=== PATIENT | female | born 1985 | race Caucasian/White ===

== ENCOUNTER 2019-05-02 18:54 | Emergency (ER) | payer MEDICAID, SELFPAY ==
[2019-05-02 19:28] VITALS: BP 128/84; PULSE 96; RESP 16; TEMP 36.7; O2SAT 98; BMI 43.2
[2019-05-02 19:45] VITALS: BP 128/86; PULSE 70; RESP 20; O2SAT 100; BMI 40.3
== END 2019-05-02 23:13 | disposition left against medical advice (07) ==
LOC: ER 23:45
PROVIDERS: Emergency Provider Physician Assistant; Family Provider Nurse Practitioner Family; PCP Nurse Practitioner Family
DX: Z53.21 Procedure and treatment not carried out due to patient leaving prior to being seen by health care provider (principal)
CPT/HCPCS: 80053; 83690; 85025; 99281

== ENCOUNTER → 2019-10-24 15:41 | Outpatient (BNVA) | payer MEDICAID, SELFPAY | PROVIDERS: Family Provider Nurse Practitioner Family; PCP Nurse Practitioner Family; Visit Provider Nurse Practitioner Family | DX: R10.13 Epigastric pain (principal); K21.9 Gastro-esophageal reflux disease without esophagitis; R11.0 Nausea | CPT/HCPCS: 81000 ==

== ENCOUNTER → 2019-10-25 09:37 | Outpatient (BNVA) | payer MEDICAID, SELFPAY | PROVIDERS: Family Provider Nurse Practitioner Family; PCP Nurse Practitioner Family; Visit Provider Nurse Practitioner Family | DX: R10.13 Epigastric pain (principal); K21.9 Gastro-esophageal reflux disease without esophagitis; R11.2 Nausea with vomiting, unspecified | CPT/HCPCS: 80053; 85025; 87338 ==

== ENCOUNTER 2019-11-10 07:24 | Outpatient (CLI) | payer MEDICAID, SELFPAY ==
--- NOTE | 2019-11-10 08:00 | US_ITS ---
WS: [id number] ULTRASOUND ABDOMEN LIMITED CLINICAL INFORMATION: epigastric pain, nausea, vomiting COMPARISON: None. FINDINGS: Liver Size: Normal. Craniocaudal length: 16.2 cm. Echogenicity: Normal. Surface nodularity: None. Mass (size and location): None. Bile ducts Intrahepatic ducts: Normal. Common bile duct diameter: 0.6 cm. Gallbladder Cholelithiasis Gallstones: Present Gallbladder sludge: None. Gallbladder wall thickening: None. Pericholecystic fluid: None. Sonographic Patino sign: Absent. Pancreas Normal as visualized. Right kidney: Normal. Hydronephrosis: None. Size: 11.2 cm x 5.3 cm x 4.0 cm. Abdominal aorta and IVC Visualized portions are normal. Ascites: None. US/US gall bladder [id number] IMPRESSION: 1. Cholelithiasis. No pericholecystic fluid or gallbladder wall thickening. 2. Normal common bile duct. 3. Remainder normal
== END 2019-11-10 07:25 | disposition home or self-care (01) ==
PROVIDERS: Family Provider Nurse Practitioner Family; PCP Nurse Practitioner; Visit Provider Nurse Practitioner Family
DX: R10.13 Epigastric pain (principal); R11.2 Nausea with vomiting, unspecified; K80.20 Calculus of gallbladder without cholecystitis without obstruction
CPT/HCPCS: 76705

== ENCOUNTER 2019-11-22 09:28 | Outpatient (CLI) | payer MEDICAID, SELFPAY ==
--- NOTE | 2019-11-22 10:00 | NM_ITS ---
WS: [id number] NUCLEAR MEDICINE HIDA SCAN CLINICAL INFORMATION: upper abdominal pain, stones TECHNIQUE: Following intravenous administration of 6.5 mCi of technetium 99m mebrofenin, images of th e abdomen were obtained over the course of 60 minutes. Next, gallbladder ejection fraction was determ ined by obtaining preprandial and one-hour postprandial images of the gallbladder following oral cat stion of Ensure. COMPARISON: Ultrasound November 10, 2019 FINDINGS: Normal hepatic uptake at 5 minutes. Gallbladder is visualized by 15 minutes. No evidence of acute cho lecystitis. Normal common bile duct. Normal small bowel activity. No evidence of acute cholecystitis. Gallbladder ejection fraction 71% within normal limits. No evidence of chronic cholecystitis. NM/NM hepatobiliary w phar* [id number] IMPRESSION: 1. No evidence of acute or chronic cholecystitis. 2. Gallbladder ejection fraction 71% within normal limits.
== END 2019-11-22 09:29 | disposition home or self-care (01) ==
LOC: NM 09:29
PROVIDERS: PCP Nurse Practitioner; Visit Provider Nurse Practitioner Family
DX: R10.10 Upper abdominal pain, unspecified (principal)
CPT/HCPCS: 78227; A9537

== ENCOUNTER → 2019-12-26 08:29 | Outpatient (BNVA) | payer MEDICAID, SELFPAY | PROVIDERS: PCP Nurse Practitioner; Visit Provider Internal Medicine | DX: K21.9 Gastro-esophageal reflux disease without esophagitis (principal); R10.13 Epigastric pain | CPT/HCPCS: 87635 ==

== ENCOUNTER 2019-12-28 07:33 | Day surgery (SDC) | payer MEDICAID, SELFPAY ==
[2019-12-26 12:58] VITALS: BMI 40.7
[2019-12-28 08:07] VITALS: BP 119/70; PULSE 81; RESP 16; TEMP 36.2; O2SAT 97
[2019-12-28] MEDS: sodium chloride 0.9% 1,000 ML 30 ML IV (08:12)
--- NOTE | 2019-12-28 08:58 | ANES.PREANE2 ---
Pre-Anesthetic Assessment Pre-Anesthetic Assessment: Height/Weight: Height 1.65 m Weight 111.13 kg Temp Pulse Resp BP Pulse Ox 97.2 F L 81 16 119/70 97 12/28/19 08:07 12/28/19 08:07 12/28/19 08:07 12/28/19 08:07 12/28/19 08:07 Preop Diagnosis: Abdominal pain and Family History of colon cancer Proposed Procedure: Operation Date: 12/28/19 09:15 Proposed Procedures p EGD/colon 99839 [id number] K21.9 Z80.0(Not Applicable) - Xavier Colunga MD s Colonoscopy(Not Applicable) - Xavier Colunga MD Was Beta Aaron taken within 24 hours: N/A Last intake: Intake Last Liquid Date 12/27/19 Last Liquid Time 21:00 Last Solid Date 12/26/19 Last Solid Time 18:00 Social: Social History: Tobacco (1 pk day) and No alcohol Comment: marijuana daily Exam: Pre-Anes Outpt Exam: alert, oriented x 3, clear to auscultation bilaterally and regular rate & rhythm Airway: Submandibular: WNL Cervical ROM: WNL Dentition: Full (very poor dentition) History/ROS: No significant history except as noted and No significant complaints Pulmonary: Pulmonary: None reported CV/HEM: CV/HEM: None reported : : None reported Hepatic: Hepatic: None reported GI: GI: GERD Metabolic: Metabolic: Morbid obesity Musc/skel: Musc/skel: None reported Neuropsych: Neuropsych: None reported Anesthetic Plan: ASA status: 2 Anesthesia: MAC Meds/Allergies Current Medications: Current Medications Generic Name Dose Route Start Last Admin Trade Name Freq PRN Reason Stop Dose Admin Sodium Chloride 1,000 mls @ 30 ml s/hr 12/28/19 07:45 12/28/19 08:12 Sodium Chloride 0.9% IV 12/29/19 07:44 30 mls/hr .Q24H CAROL Administration PFSH Anesthesia PFSH: Medical History Cholelithiasis Chronic nausea Chronic vomiting Epigastric pain Family hx of colon cancer requiring screening colonoscopy GERD (gastroesophageal reflux disease) Surgical History History of 2 sections History of ankle surgery Right tibia screws History of bilateral tubal ligation Family History Other Cancer Diabetes Hypertension Stroke Denies family history of Dementia Chronic kidney disease (CKD) Social History Smoking and tobacco status: current every day smoker Second hand smoke exposure: Yes Smoking risk assessment/counseling performed?: Yes Alcohol intake: former Desire information about alcohol rehabilitation?: No Counseling given: No Desire information about substance/drug rehabilitation?: No Counseling given: No Caregiver/support person: No Lives independently: Yes Household members: spouse Housing: House Marital status: Number of children: 2 service: No Current occupational status: unemployed History of recent travel: No Current gender identity: Female Data Anesthesia Cardiac Studies: No Data to Display
--- NOTE | 2019-12-28 09:03 | W.PM.OPSUD ---
Surgery/Procedure H&P Update DATE OF PROCEDURE: December 28, 2019 DATE H&P PERFORMED: 12/07/19 H&P UPDATE INFORMATION: I have reviewed H&P completed within last 30 days, I have examined patient prior to procedure and No changes to prior documentation PREOP DIAGNOSIS: Abdominal pain and Family History of colon cancer PRIMARY INDICATION FOR PROCEDURE: The same PLANNED PROCEDURE: Operation Date: 12/28/19 09:15 Proposed Procedures p EGD/colon 08079 [id number] K21.9 Z80.0(Not Applicable) - Xavier Colunga MD s Colonoscopy(Not Applicable) - Xavier Colunga MD
[2019-12-28 09:23] VITALS: BP 98/68; PULSE 83; RESP 16; TEMP 36.8; O2SAT 93
--- NOTE | 2019-12-28 09:31 | ANE.PACU2 ---
Inpatient post-anesthesia follow up: Airway intact: Yes Vital signs: Temperature 97.2 F Pulse Rate 81 Respiratory Rate 16 Blood Pressure 119/70 Pulse Oximetry 97 Oxygen Delivery Me thod Room Air Oxygen Flow Rate Fraction of Inspir ed Oxygen Hydration adequate: Yes Nausea and vomiting: No Mental status: Baseline
[2019-12-28 09:42] VITALS: BP 112/88; PULSE 82; RESP 16; O2SAT 97
== END 2019-12-28 09:53 | disposition home or self-care (01) ==
PROVIDERS: Visit Provider Surgery
PROC: 0DJ08ZZ Inspection of Upper Intestinal Tract, Via Natural or Artificial Opening Endoscopic (ICD-10-PCS; CPT 43235; principal; 2019-12-28 09:15)
PROC: 0DJD8ZZ Inspection of Lower Intestinal Tract, Via Natural or Artificial Opening Endoscopic (ICD-10-PCS; CPT 45378; 2019-12-28 09:15)
DX: K29.80 Duodenitis without bleeding (principal); K29.70 Gastritis, unspecified, without bleeding; K21.9 Gastro-esophageal reflux disease without esophagitis; F17.210 Nicotine dependence, cigarettes, uncomplicated; E66.01 Morbid (severe) obesity due to excess calories; Z80.0 Family history of malignant neoplasm of digestive organs
CPT/HCPCS: 12345; 43235; 45378; J2704; J3010; J7030

== ENCOUNTER → 2020-01-20 09:57 | Outpatient (BNVA) | payer MEDICAID, SELFPAY | PROVIDERS: Visit Provider Internal Medicine | DX: Z20.828 Contact with and (suspected) exposure to other viral communicable diseases (principal) | CPT/HCPCS: 87635 ==

== ENCOUNTER 2020-01-25 08:41 | Day surgery (SDC) | payer MEDICAID, SELFPAY ==
[2020-01-23 12:02] VITALS: BMI 36.4
[2020-01-25] VITALS (13 sets, daily range): BP systolic 101–179; BP diastolic 62–127; PULSE 61–90; RESP 18–27; TEMP 36.2–36.5; O2SAT 94–98
[2020-01-25 09:04] LABS: OR HCG Qualitative Urine Negative (Negative)
[2020-01-25] MEDS: sodium chloride 0.9% 1,000 ML 30 ML IV (09:24)
[2020-01-25] MEDS: heparin 5,000 unit/mL INJ 1 mL 2000 UNIT SUBCUT (09:25)
--- NOTE | 2020-01-25 09:34 | ANES.PREANE2 ---
Pre-Anesthetic Assessment Pre-Anesthetic Assessment: Height/Weight: Height 1.65 m Weight 99.337 kg Temp Pulse Resp BP Pulse Ox 97.6 F 73 18 101/69 97 01/25/20 09:07 01/25/20 09:07 01/25/20 09:07 01/25/20 09:07 01/25/20 09:07 Preop Diagnosis: Symptomatic cholelithiasis Proposed Procedure: Operation Date: 01/25/20 11:00 Proposed Procedures p Laparoscopic Cholecystectomy 88501 K80.20(Not Applicable) - Xavier Colunga MD Familial anesthetic complications: None Was Beta Aaron taken within 24 hours: N/A Last intake: Intake Last Liquid Date 01/24/20 Last Liquid Time 21:00 Last Solid Date 01/24/20 Last Solid Time 16:00 Social: Social History: Tobacco and No alcohol Comment: 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 Exam: Pre-Anes Outpt Exam: alert, oriented x 3, clear to auscultation bilaterally and regular rate & rhythm Airway: Cervical ROM: WNL MP: 4 Dentition: Chipped and Other (missing) GI: GI: GERD Metabolic: Metabolic: Morbid obesity Anesthetic Plan: ASA status: 1 Anesthesia: General Risk of > 500 ml blood loss (7ml/kg in children): No Meds/Allergies Current Medications: Current Medications Generic Name Dose Route Start Last Admin Trade Name Freq PRN Reason Stop Dose Admin Sodium Chloride 1,000 mls @ 30 ml s/hr 01/25/20 09:15 01/25/20 09:24 Sodium Chloride 0.9% IV 01/26/20 09:14 30 mls/hr .Q24H CAROL Administration PFSH Anesthesia PFSH: Medical History Cholelithiasis Chronic nausea Chronic vomiting Epigastric pain Family hx of colon cancer requiring screening colonoscopy GERD (gastroesophageal reflux disease) Surgical History History of 2 sections History of ankle surgery Right tibia screws History of bilateral tubal ligation Family History Other Cancer Diabetes Hypertension Stroke Denies family history of Dementia Chronic kidney disease (CKD) Social History Smoking and tobacco status: current every day smoker Second hand smoke exposure: Yes Smoking risk assessment/counseling performed?: Yes Alcohol intake: former Desire information about alcohol rehabilitation?: No Counseling given: No Desire information about substance/drug rehabilitation?: No Counseling given: No Caregiver/support person: No Lives independently: Yes Household members: spouse Housing: House Marital status: Number of children: 2 service: No Current occupational status: unemployed History of recent travel: No Current gender identity: Female Female Reproductive History: Date of last menstrual period: 01/22/20 Data Anesthesia Other Labs: Laboratory Results - last 48 hr 01/25/20 09:04 Urine HCG, Qual Negative Cardiac Studies: No Data to Display
--- NOTE | 2020-01-25 10:09 | W.PM.OPSUD ---
Surgery/Procedure H&P Update DATE OF PROCEDURE: January 25, 2020 DATE H&P PERFORMED: 01/11/20 H&P UPDATE INFORMATION: I have reviewed H&P completed within last 30 days and No changes to prior documentation PREOP DIAGNOSIS: Symptomatic cholelithiasis PRIMARY INDICATION FOR PROCEDURE: The same PLANNED PROCEDURE: Operation Date: 01/25/20 11:00 Proposed Procedures p Laparoscopic Cholecystectomy 20563 K80.20(Not Applicable) - Xavier Colunga MD
[2020-01-25] MEDS: lidocaine 2% INJ 20 mL INJECTION (11:50)
--- NOTE | 2020-01-25 12:38 | PM.OP ---
Operative Report Date of procedure: January 25, 2020 Pre-op Diagnosis: Symptomatic cholelithiasis Post-op diagnosis: other (Chronic calculus cholecystitis) Procedure Done: Laparoscopic cholecystectomy Specimens removed/disposition: Gallbladder and contents Gallbladder lymph node Surgeon: Xavier Colunga New Car Make Ready Mechanic: Surgical techkassi Sahu Circulating nurses Jossy and Vika Anesthesia: General (director of special education Fly) Estimated blood loss (mL): 25 Condition: stable Disposition: same day Brief History: This is a pleasant 34 years old female patient presented to my office with history of abdominal pain and was found to have symptomatic cholelithiasis after further work-up including EGD and colonoscopy. Plan of care; After thorough history physical examination and reviewing the chart ,I counseled the patient for laparoscopic cholecystectomy possible open, indications risks including but not limited injury to the common bile duct and other viscera.benefits and alternatives all discussed with the patient, and she did agree to proceed. All questions have been answered and all concerns have been addressed to patient's satisfaction. Rationale was carefully and clearly discussed with the patient.Appropriate informed consent have been reviewed and signed. Procedure: Patient was identified in the holding area and taken back to the operative suite, placed in supine position intubated by anesthesia . Time-out was done verifying the patient's name/date of /planned procedure and destination after the procedure, all were in agreement.SCDs confirmed to be functioning, preoperative antibiotics administered per protocol, and beta freddie protocol was confirmed. Patient was appropriately secured to the table, footboard was applied to the OR table, before prep and drape anesthesia was asked to tilt the table back and forth to make sure that the patient is appropriately secured and she was. Prep and drape of the abdomen was done under the usual sterile technique, followed by that supraumbilical skin incision,skin incision was done by a 15 blade knife, and stay sutures were applied to the fascia and Rodarte trocar technique was used to enter the abdominal without injuring any abdominal viscera, started by low flow gas insufflation followed by a high flow, started with a 10 mm laparoscope and under direct vision there was no evidence of any injuries, the scope then switched to a 30? ,10 millimeter scope and under direct visualization 5 millimeter trocar was inserted in the epigastric region followed by two 5 mm trocars were inserted in the right upper quadrant that was done after injection of local lidocaine 2% at all incision sites. Gallbladder showed chronic calculus cholecystitis with fatty liver component Patient was then positioned in the head up and tilted to the left Ratcheted forceps were introduced into the lateral most 5mm port and was applied unto the fundus of the gallbladder cephalad and using Bullet forceps the infundibulum of the gallbladder was retracted laterally. Using [place] forceps then L-hook cautery to dissect the peritoneum overlying the Calot's triangle whihc was then opened medially and laterally until the cystic duct and the cystic artery were skeletonized. Dissection was carried along the body of the gallbladder and after ensuring critical view of safety was identfied. Cystic duct and cystic artery where seen connected to the gallbladder. Clips were applied on the cystic duct towards the common bile duct 1 towards the gallbladder then divided is in sharp scissors, 2 clips were then applied onto the cystic artery and 1 towards the gallbladder and divided by sharp scissors. Additional traversing vessel was clipped and divided Dissection was then carried along of the gallbladder from the gallbladder fossa using cautery as well as sharp dissection with heat energy. The gallbladder then was dissected out from the gallbladder fossa totally , cholecystectomy was then achieved and was placed in an Endo Catch bag and then retrieved from the Rodarte trocar site under direct visualization using a 5 mm 30? scope through the epigastric trocar, specimen was then passed to the circulating nurse to go for permanent pathology,irrigation and hemostasis was done to the gallbladder fossa after hemostasis was secured, final survey laparoscopy was done that showed no injuries.Suction irrigation was obtained. The supraumbilical fascial defect was then closed using interrupted Vicryl sutures using a fascial closure device ;Giacomo Lauren under direct visualization Gas was allowed to deflate,Trocars were then taken out under direct vision there was no evidence of bleeding Specimen was passed to the circulating nurse for permanent pathology. No drains were placed and the supraumbilical incision as well as all trocar sites were closed by by 4-0 Monocryl to approximate the skin edges of the supraumbilical incision, dressing was applied in the form of Dermabond and the patient patient got extubated and was taken to recovery area in a stable condition. Count of sponges, needles and instruments were completed at the end of the procedure I was present for the whole entire procedure.
--- NOTE | 2020-01-25 13:01 | SUR.PHASEI ---
1259 PATIENT TO PACU FROM OR. RR EVEN AND UNLABORED. SPO2 97% ON SIMPLE MASK AT 8L. 4 INCISIONS TO ABDOMEN, CLOSED WITH EXOFIN, CDI.
[2020-01-25] MEDS: ondansetron 2 mg/ML SDV 2 mL 4 MG IVP ×2 (13:08→13:20)
[2020-01-25] MEDS: fentaNYL 50 mcg/mL INJ 2mL IVP (13:18)
--- NOTE | 2020-01-25 13:47 | SUR.PHASEI ---
1342 PATIENT TO OPS. NAUSEA IMPROVED. 4 INCISIONS TO ABDOMEN, CDI.
[2020-01-25] MEDS: HYDROcodone-acetaminophen 5-325 mg Tablet 1 TAB PO (14:13)
--- NOTE | 2020-01-25 14:30 | ANE.PACU2 ---
Inpatient post-anesthesia follow up: Airway intact: Yes Vital signs: Temperature 97.1 F Pulse Rate 72 Respiratory Rate 18 Blood Pressure 137/62 Pulse Oximetry 98 Oxygen Delivery Me thod Room Air Oxygen Flow Rate 8 Fraction of Inspir ed Oxygen Hydration adequate: Yes Nausea and vomiting: Yes (used multimodal treatments) Pain level: 5 Mental status: Baseline
== END 2020-01-25 14:32 | disposition home or self-care (01) ==
PROVIDERS: Anesthesiology; Visit Provider Surgery
PROC: 0FT44ZZ Resection of Gallbladder, Percutaneous Endoscopic Approach (ICD-10-PCS; CPT 47562; principal; 2020-01-25 10:30)
DX: K80.70 Calculus of gallbladder and bile duct without cholecystitis without obstruction (principal); K21.9 Gastro-esophageal reflux disease without esophagitis; E66.01 Morbid (severe) obesity due to excess calories; Z68.36 Body mass index [BMI] 36.0-36.9, adult; Z80.0 Family history of malignant neoplasm of digestive organs; F17.210 Nicotine dependence, cigarettes, uncomplicated
CPT/HCPCS: 47562; 12345; 84703; 88304; 88305; J0131; J0690; J1100; J1644; J1885; J2405; J2704; J2710; J2765; J3010; J3490; J7030

== ENCOUNTER 2020-01-26 07:47 | Emergency (ER) | payer MEDICAID, SELFPAY ==
[2020-01-26 07:51] VITALS: BP 160/90; PULSE 95; RESP 18; TEMP 36.5; O2SAT 100; BMI 36.6
--- NOTE | 2020-01-26 08:12 | ED_ITS ---
HPI - Nausea/Vomiting/Diarrhea General: Chief complaint: Nausea/Vomiting/Diarrhea Stated complaint: vomiting post op surgery Time Seen by Provider: 01/26/20 07:51 History of Present Illness: HPI Narrative: This patient is a 34-year-old female who presents today with vomiting. She had her gallbladder removed yesterday and started having vomiting on the way home from the hospital. She has been unable to keep anything down including her pain medication. She has not taken anything for nausea and vomiting. She is thrown up multiple times throughout the night and continues to have severe nausea and emesis during my exam. She has some pain in the left upper quadrant but in general her main complaint is nausea and vomiting. MD elicited complaint: nausea, vomiting and abdominal pain Pertinent past history: abdominal surgery Onset (ago): hour(s) (12) Description of vomiting: food contents and watery Associated nausea: Yes Associated abdominal pain: Yes Location of pain: LUQ Pain consistency: constant Severity: moderate Quality: sharp Exacerbating factors: movement Relieving factors: movement Associated symtoms: Reports nausea; Denies change in vision, chest pain or headache(s) Review of Systems General: Reports: 10 or more systems reviewed and unremarkable except in HPI and below Const: Denies: fever(s) Eyes: Denies: change in vision ENMT: Denies: odynophagia Card: Denies: chest pain or swelling of feet/ankles Resp: Denies: dyspnea, productive cough or non-productive cough GI: Reports: abdominal pain, nausea and vomiting : Denies: flank pain or difficulty voiding Musc: Denies: neck pain or back pain Skin/Breast: Denies: rash Neuro: Denies: headache(s), numbness in extremities or weakness in extremities Spencer/Lymph: Denies: easy bruising or easy bleeding PFSH ED PFSH: Medical History Cholelithiasis Chronic nausea Chronic vomiting Epigastric pain Family hx of colon cancer requiring screening colonoscopy GERD (gastroesophageal reflux disease) Surgical History History of 2 sections History of ankle surgery Right tibia screws History of bilateral tubal ligation Family History Other Cancer Diabetes Hypertension Stroke Denies family history of Dementia Chronic kidney disease (CKD) Social History Smoking and tobacco status: current every day smoker Second hand smoke exposure: Yes Smoking risk assessment/counseling performed?: Yes Alcohol intake: former Desire information about alcohol rehabilitation?: No Counseling given: No Substance/Drug Use: current Substance/Drug use frequency: daily Substance/Drug use type: Marijuana Caregiver/support person: No Lives independently: Yes Household members: spouse Housing: House Marital status: Number of children: 2 service: No Current occupational status: unemployed History of recent travel: No Current gender identity: Female Female Reproductive History: Date of last menstrual period: 01/22/20 Physical Exam Const: COMMON NORMALS: patient oriented x3, no limitations and alert GENERAL APPEARANCE: cooperative HENMT: HEAD & SCALP: normal to inspection FACE & SINUS: normal facial exam Eye: GENERAL EYE: appearance normal, both eyes and all related structures Neck/C-Spine: COMMON NORMALS: supple, no meningeal signs and no JVD Chest: COMMONS NORMALS: normal inspection of the chest Resp: COMMON NORMALS: normal respiratory effort, No use of accessory muscles and clear to auscultation bilaterally AUSCULTATION: clear to auscultation bilaterally Cardio: COMMON NORMALS: no JVD, regular rate, regular rhythm and No murmurs present (Cardio) RATE: regular rate RHYTHM: regular rhythm GI: PALPATION: Yes Tenderness to palpation present (GI) (Diffuse) Back/Pelvis: COMMON NORMALS: thoracic and lumbar spine normal to inspection Extremity: COMMON NORMALS: normal to inspection Neuro: COMMON NORMALS: patient oriented x3, moves all extremities, no focal motor deficits and no sensory deficits noted SENSORIUM/ORIENTATION: Yes alert MENINGEAL SIGNS: Yes no meningeal signs Psych: COMMON NORMALS: mental status grossly normal, cooperative and normal affect Skin: COMMON NORMALS: no rashes or lesions noted and turgor normal GENERAL SKIN EXAM: no rashes or lesions noted and turgor normal Course ED course: Patient in severe distress with vomiting on initial arrival. After some medications, fluids, rest she reported feeling completely better. She was able to tolerate sips of fluid and then some pudding. She feels comfortable to go home. I am sending her home with some ODT ondansetron. She will continue her other postop instructions. Vital Signs: Vital signs: Vital Signs Temperature 97.7 F 01/26/20 07:51 Pulse Rate 72 01/26/20 13:31 Respiratory Rate 18 01/26/20 13:31 Blood Pressure 113/72 01/26/20 13:31 Pulse Oximetry 97 01/26/20 13:31 Discharge Plan Discharge Patient Disposition: Home Clinical Impression: Vomiting Qualifiers: Vomiting type: unspecified Vomiting Intractability: non-intractable Nausea presence: with nausea Qualified Code(s): R11.2 - Nausea with vomiting, unspecified Condition: Stable Prescriptions: New ondansetron 4 mg tablet,disintegrating 4 mg PO Q6H PRN (Reason: nausea and vomiting) Qty: 10 RF: 0 No Action diphenhydramine-acetaminophen [Tylenol PM Extra Strength] 25-500 mg Tablet 1 tab PO Q4H PRN (Reason: Pain) RF: 0 hydrocodone-acetaminophen [[place]] 5-325 mg tablet 1 tab PO Q6H PRN (Reason: pain) Qty: 28 RF: 0 pantoprazole [Protonix] 40 mg tablet,delayed release (DR/EC) 40 mg PO DAILY 30 Days Qty: 30 RF: 2 Discharge Orders: Discharge Order (Routine); Ordered 01/26/20 Ordered By: Oneida [place] Discharge Diet: As Directed Discharge Activity: Limit activity as instructed Patient Instructions: Acute Nausea and Vomiting (ED) Activity Restrictions/Additional Instructions: Continue instructions given by your surgeon including follow-up. Use your pain medicine as needed. You may also use the ondansetron for nausea. Discharge Date/Time: 01/26/20 13:35 Coding Level of Care Code ED Agent Based Modeler for [employer] Fwd Exam Comprehensive
[2020-01-26 08:35] VITALS: RESP 17; O2SAT 96
[2020-01-26] MEDS: ondansetron 2 mg/ML SDV 2 mL 4 MG IVP (08:35)
[2020-01-26] MEDS: morphine 4 mg/mL SDV 1 mL IVP (08:35)
[2020-01-26] MEDS: sodium chloride 0.9% 1,000 ML 999 ML IV (08:37)
[2020-01-26] MEDS: famotidine 20 mg/2 mL INJ 40 MG IVP (10:10)
[2020-01-26 10:11] VITALS: RESP 18; O2SAT 98
[2020-01-26] MEDS: ketorolac 30 mg/mL INJ 15 MG IVP (10:11)
[2020-01-26] MEDS: HYDROmorphone 1 mg/mL INJ 1 mL 0.5 MG IVP (10:11)
[2020-01-26 13:31] VITALS: BP 113/72; PULSE 72; RESP 18; O2SAT 97
== END 2020-01-26 13:35 | disposition home or self-care (01) ==
PROVIDERS: Emergency Provider Emergency Medicine
DX: R11.2 Nausea with vomiting, unspecified (principal); F17.210 Nicotine dependence, cigarettes, uncomplicated
CPT/HCPCS: 12345; 96361; 96374; 96375; 99282; 99283; J1170; J1885; J2270; J2405; J3490; J7030

== ENCOUNTER 2020-01-27 10:25 | Observation (INO) | payer MEDICAID, SELFPAY ==
[2020-01-27] VITALS (12 sets, daily range): BP systolic 123–165; BP diastolic 76–101; PULSE 71–81; RESP 18–25; TEMP 36.9–38.2; O2SAT 97–100; BMI 36.6
--- NOTE | 2020-01-27 11:27 | PC.NURSE ---
This RN reviewed chart and agree with matteo Fenton.
[2020-01-27 11:42] LABS: Alanine Aminotransferase 26 U/L (0-33); Albumin Level 4.6 g/dL (3.5-5.2); Alkaline Phosphatase 79 IU/L (35-105); Anion Gap 17.5 (5-19); Aspartate Amino Transferase 19 U/L (0-32); Blood Urea Nitrogen 6 mg/dL (6-20); Calcium 9.7 mg/dL (8.5-10.5); Carbon Dioxide 20 mmol/L (22-29); Chloride 103 mmol/L (98-107); Globulin 2.9 g/dL (1.3-4.6); Glomerular Filtration Rate 115.9 mL/min (90-130); Glucose 117 mg/dL (65-115); Lipase 15 U/L (13-60); Osmolality Calculated 283 mOsm/kg (285-295); Potassium 3.5 mmol/L (3.5-5.1); Sodium 137 mmol/L (136-145); Total Bilirubin 0.3 mg/dL (0.15-1.2); Total Protein 7.5 g/dL (6.6-8.7)
[2020-01-27] MEDS: sodium chloride 0.9% 1,000 ML 999 ML IV (11:44)
[2020-01-27 11:45] LABS: Basophils % 0.1 %; Eosinophils % 0.4 %; Hematocrit 39.1 % (37.0-47.0); Hemoglobin 13.7 g/dL (11.5-15.3); Lymphocytes # 0.6 10^3/uL (0.8-4.8); Lymphocytes % 5.7 %; Mean Corpuscular Hemoglobin 31.9 pg (28.0-34.0); Mean Corpuscular Volume 90.9 fL (81-99); Mean Platelet Volume 11.7 fL (7.4-10.4); Monocytes # 0.3 10^3/uL (0.2-0.9); Neutrophils % 90.6 %; Nucleated Red Blood Cells % 0 %; Platelet Count 174 10^3/cmm (130-400); Red Cell Distribution Width 12.3 % (12.1-15.1)
[2020-01-27] MEDS: ondansetron 2 mg/ML SDV 2 mL 4 MG IVP ×3 (11:46→18:28)
[2020-01-27] MEDS: orphenadrine 30 mg/mL Inj 2 mL 60 MG IVP (12:20)
--- NOTE | 2020-01-27 12:20 | P.PN_ITS ---
Subjective Subjective: Interval history: I am nauseated Interval history This is a pleasant 34 years old female patient well-known to me undergone uneventful laparoscopic cholecystectomy last Thursday and was discharged home. Patient apparently has been having intermittent nausea and vomiting. Him yesterday to the emergency department and was treated conservatively and discharged home. The day she continues to have worsening symptoms she was evaluated in the emergency department by nurse practitioner Vika and blood work was ordered that showed insignificance, including liver function tests. Patient was recently scoped by me and showed duodenitis and she has been on Protonix. Clinically she was not able to take it. Patient continues to have stable vital signs She complains mostly of pain around the umbilical region likely at the site of trocar incision closure. Patient was seen and evaluated in the emergency department room #2 Vitals/I&O/Wt Last Vital Signs Temp 98.8 F 01/27/20 11:00 Pulse 71 01/27/20 11:46 Resp 25 H 01/27/20 11:46 BP 165/86 01/27/20 11:46 Pulse Ox 100 01/27/20 11:46 Weight last 48 hrs Weight 220 lb Physical Exam Narrative: EXAM NARRATIVE: Patient is conscious alert oriented X3 BMI 36.6 Head and neck examination PERRLA no masses no cervical lymphadenopathy No jaundice Abdomen nontender except at the periumbilical and towards the left side more than the right side. Nondistended soft no organomegaly guarding or rigidity/no signs of peritonitis Incisions are clean dry and intact Data : 01/28/20 04:34 01/28/20 04:34 A&P Assessment and plan (1) Vomiting: Appropriate IV fluid hydration Muscle relaxants in the form of 10 mg 3 times daily Flexeril as needed for 30 days and refill x1 Carafate 1 g 3 times daily for 30 days refill x2 Scopolamine patch 1.5 mg nausea and vomiting Protonix IV 40 mg stat Norflex one-time dose Ice packs 3-4 times a day If patient continues to have symptoms we will plan to perform a CT scan of the abdomen and pelvis. Oral contrast.: 1. Small to moderate amount fluid in the dependent pelvis which has the density of blood. 2. Hepatic steatosis. 3. Splenomegaly. 4. Mild mucosal thickening of the distal esophagus. Consider esophagitis. 5. Nonobstructing right nephrolithiasis. We will plan to admit the patient for observation status and electrolyte replacement Assurance and education All questions have been answered and all concerns have been addressed to patient's satisfaction. Status: Acute Qualifiers: Nausea presence: with nausea Vomiting Intractability: non-intractable Vomiting type: unspecified Qualified Code(s): R11.2 - Nausea with vomiting, unspecified Attestations Medical Necessity Statement*: Patient was seen in ER setting Time Spent in Patient Care: (>than 50% of time spent in counselling and/or direct pt care on unit) . Coding Level of Care Code Acute Prototype Fabricator for g Fwd Diagnoses Vomiting R11.2 Nausea presence: with nausea Vomiting Intractability: non-intractable Vomiting type: unspecified
[2020-01-27] MEDS: famotidine 20 mg/2 mL INJ 40 MG IVP (12:23)
[2020-01-27] MEDS: scopolamine 1.5 Patch 1 PATCH TRANSDERMA ×2 (12:27→18:26)
[2020-01-27 13:27] LABS: Urine Color Yellow (Yellow)
[2020-01-27 13:28] LABS: Add Urine Culture? No; Add Urine Microscopic? YES; Bacteria Urine 2+ /hpf; Bilirubin Urine Neg (Negative); Blood Urine 3+ (Negative); Glucose Urine UA Norm (Normal); Ketones Urine 3+ (Negative); Leukocyte Esterase Urine Negative (Negative); Mucus Urine 1+ /hpf; Nitrate Urine Negative (Negative); Protein Urine Neg (Negative); Specific Gravity, Urine 1.025 (1.005-1.030); Squamous Epithelial Cell Urine 15-25 /hpf (0-5); Urine Appearance SL Hazy (CLEAR); Urobilinogen Urine Norm (Negative)
--- NOTE | 2020-01-27 13:28 | CTR_ITS ---
PROCEDURE INFORMATION: Exam: CT Abdomen And Pelvis With Contrast Exam date and time: 01/27/2020 1:33 PM Age: 34 years old Clinical indication: Abdominal pain; Prior surgery; Surgery date: Post-operative (0-2 days); Surgery type: 2 days S/P lap roland n/v pain; Additional info: Abd pain post op TECHNIQUE: Imaging protocol: Computed tomography of the abdomen and pelvis with intravenous contrast. Radiation optimization: All CT scans at this facility use at least one of these dose optimization techniques: automated exposure control; mA and/or kV adjustment per patient size (includes targeted exams where dose is matched to clinical indication); or iterative reconstruction. Contrast material: OMNI 300; Contrast volume: 95 ml; Contrast route: INTRAVENOUS (IV); COMPARISON: US gall bladder [id number] 11/10/2019 7:31 AM RADIATION DOSE METRICS: Total DLP (mGy-cm): 1550.31 FINDINGS: Mediastinal space: There is mild mucosal thickening of the distal esophagus. Consider esophagitis. Liver: There is a diffuse decrease in hepatic parenchymal density, consistent with fatty infiltration. There is a 5 mm hypodensity at the dome of the liver which most likely reflects a small cyst or hemangioma. There is a diffuse decrease in hepatic parenchymal density, consistent with fatty infiltration. Gallbladder and bile ducts: Cholecystectomy. Cholecystectomy. Pancreas: The pancreas is normal. Spleen: Splenomegaly. The spleen measures to 14.6 x 13.1 x 4.4 cm in greatest dimension. Adrenals: The adrenal glands are normal. Kidneys and ureters: The kidneys are normal. There is punctate, nonobstructing right nephrolithiasis. Stomach and bowel: The stomach is normal. Retained fecal material is noted in the colon. No bowel obstruction. Appendix: No evidence of appendicitis. Intraperitoneal space: Small amount of fluid in the right pericolic gutter. There is small to moderate amount fluid in the dependent pelvis which is blood density. No free air identified. Vasculature: The vasculature is normal. Lymph nodes: No lymphadenopathy is seen. Urinary bladder: The bladder is normal. Reproductive: Unremarkable as visualized. Bones/joints: Unremarkable. No acute fracture. Soft tissues: There is infiltration the superficial fat of the left anterior abdominal wall. CT/CT abdomen pelvis w con* [id number] IMPRESSION: 1. Small to moderate amount fluid in the dependent pelvis which has the density of blood. 2. Hepatic steatosis. 3. Splenomegaly. 4. Mild mucosal thickening of the distal esophagus. Consider esophagitis. 5. Nonobstructing right nephrolithiasis. Radiation Dose CTDIVOL = (mGy): DLP = 1550.31 (mGy-cm)
--- NOTE | 2020-01-27 13:33 | W.ED.NAVMDI ---
HPI - Nausea/Vomiting/Diarrhea General: Chief complaint: Nausea/Vomiting/Diarrhea Stated complaint: N/V Time Seen by Provider: 01/27/20 10:58 Source: patient Mode of arrival: ambulatory Limitations: no limitations History of Present Illness: HPI Narrative: 34 yo female patient presents to ER c/o abd pain, nausea and vomitting. Pt had gallbladder removed 2 days ago. Pt was seen here yesterday for same complaint pt states pain is worse today and vomiting has worsened as well. Pt denies any fever. Pt denies any back pain or urinary symptoms. Associated nausea: Yes Associated symtoms: Reports nausea; Denies change in vision, chest pain, dizziness, dysuria, headache(s) or palpitations Review of Systems General: Reports: 10 or more systems reviewed and unremarkable except in HPI and below Const: Denies: fever(s), chills or body aches Eyes: Denies: change in vision or blurry vision ENMT: Denies: throat pain, mouth pain or dental pain Card: Denies: chest pain, palpitations or irregular heart rhythm Resp: Denies: dyspnea, productive cough, non-productive cough or wheezing GI: Reports: abdominal pain, nausea and vomiting : Denies: flank pain, difficulty voiding, dysuria, urinary frequency or urinary urgency Musc: Denies: neck pain or back pain Neuro: Denies: headache(s), dizziness or vertigo Psych: Denies: suicidal ideation or homicidal ideation PFSH ED PFSH: Medical History Cholelithiasis Chronic nausea Chronic vomiting Epigastric pain Family hx of colon cancer requiring screening colonoscopy GERD (gastroesophageal reflux disease) Surgical History History of 2 sections History of ankle surgery Right tibia screws History of bilateral tubal ligation Family History Other Cancer Diabetes Hypertension Stroke Denies family history of Dementia Chronic kidney disease (CKD) Social History Smoking and tobacco status: current every day smoker Second hand smoke exposure: Yes Smoking risk assessment/counseling performed?: Yes Alcohol intake: former Desire information about alcohol rehabilitation?: No Counseling given: No Caregiver/support person: No Lives independently: Yes Household members: spouse Housing: House Marital status: Number of children: 2 service: No Current occupational status: unemployed History of recent travel: No Current gender identity: Female Female Reproductive History: Date of last menstrual period: 01/25/20 Physical Exam Const: COMMON NORMALS: no acute distress, average body habitus, patient oriented x3, no limitations, healthy appearing, alert and well nourished HENMT: COMMON NORMALS: normocephalic, atraumatic, hearing grossly normal bilaterally, external ears normal, EAC's normal, TM's normal bilaterally, Normal external nose present, Normal nasal mucous membranes and turbinates present, moist oral mucous membranes, oropharynx normal, dentition normal and gingiva normal HEAD & SCALP: normocephalic and atraumatic NOSE: Normal external nose present and Normal nasal mucous membranes and turbinates present EXTERNAL EAR: Yes external ears normal EXTERNAL AUDITORY CANAL: EAC's normal TYMPANIC MEMBRANE: TM's normal bilaterally Eye: COMMON NORMALS: Equal, round and reactive pupils present, EOMs intact bilaterally, conjunctivae normal, no scleral icterus, no papilledema, normal visual molina by confrontation and fundi normal bilaterally CONJUNCTIVA: Yes conjunctivae normal PUPIL: Yes Equal, round and reactive pupils present DIRECT OPHTHALMOSCOPY: Yes no papilledema and Yes fundi normal bilaterally Neck/C-Spine: COMMON NORMALS: full ROM, no lymphadenopathy, supple, no meningeal signs, no JVD, Thyroid normal and No carotid bruits THYROID: Thyroid normal Chest: COMMONS NORMALS: normal inspection of the chest, normal palpation of entire chest wall, normal inspection of the breasts and normal palpation of the breasts Resp: COMMON NORMALS: normal respiratory effort, No retractions, No use of accessory muscles, clear to auscultation bilaterally and percussion normal AUSCULTATION: clear to auscultation bilaterally PERCUSSION: percussion normal Cardio: COMMON NORMALS: no JVD, regular rate, regular rhythm, S1 normal heart sound present, S2 normal heart sound present, No gallops present (Cardio), No clicks present (Cardio), No murmurs present (Cardio), No rub (Cardio) and Peripheral pulses 2+ throughout RATE: regular rate RHYTHM: regular rhythm HEART SOUNDS: S1 normal heart sound present and S2 normal heart sound present PERIPHERAL PULSES: Peripheral pulses 2+ throughout GI: COMMON NORMALS: Normal to inspection, nondistended, normoactive bowel sounds present, Soft to palpation, No hepatosplenomegaly present, no masses and no bruits PALPATION: Yes Soft to palpation, Yes Tenderness to palpation present (GI) Details: other (diffuse) and Yes No hepatosplenomegaly present : COMMON NORMALS: Yes no CVA tenderness BLADDER/KIDNEY EXAM: Yes no CVA tenderness Back/Pelvis: COMMON NORMALS: no CVA tenderness, thoracic and lumbar spine normal to inspection, no thoracic nor lumbar tenderness, thoraco-lumbar ROM normal and straight leg raise negative bilaterally Extremity: COMMON NORMALS: normal to inspection, full ROM, capillary refill normal, no joint enlargement, no clubbing, cyanosis or edema, no calf tenderness and no pedal edema Neuro: COMMON NORMALS: patient oriented x3, CN's II-XII intact bilaterally, moves all extremities, no focal motor deficits, no sensory deficits noted and gait normal SENSORIUM/ORIENTATION: Yes alert MENINGEAL SIGNS: Yes no meningeal signs Psych: COMMON NORMALS: mental status grossly normal, Normal thought process present, cooperative, normal affect, speech normal, activity/motor behavior normal, denies hallucinations, denies homicidal ideation and denies suicidal ideation SPEECH: Yes normal speech THOUGHT PROCESS: Normal thought process present Skin: COMMON NORMALS: no rashes or lesions noted, no wounds, turgor normal, no jaundice, no petechiae and no mottling GENERAL SKIN EXAM: no rashes or lesions noted and turgor normal Course Vital Signs: Vital signs: Vital Signs Temperature 98.8 F 01/27/20 11:00 Pulse Rate 76 01/27/20 15:10 Respiratory Rate 18 01/27/20 15:10 Blood Pressure 150/86 01/27/20 15:10 Pulse Oximetry 99 01/27/20 15:10 MDM - Nausea/Vomiting/Diarrhea MDM Narrative: Medical decision making narrative: Pt presents with active vomiting and abd pain post roland. I spoke with Dr. Perdue who advisd to give Pepcid, Norflex and if no improvement CT with oral contrast. CT reveals Patient: Sadia Mckoy #: [id number] : 1985Acct#:[id number] Age/Sex: 34 / FADM Date: 01/27/20 Loc: ERRoom/Bed: Attending Dr: Ordering Provider/Ordering MD: Vika Cortes NP Date of Service: 01/27/20 Procedure(s): CT abdomen pelvis w con* [id number] Accession Number(s): [id number] Report Number: [id number] PROCEDURE INFORMATION: Exam: CT Abdomen And Pelvis With Contrast Exam date and time: 01/27/2020 1:33 PM Age: 34 years old Clinical indication: Abdominal pain; Prior surgery; Surgery date: Post-operative (0-2 days); Surgery type: 2 days S/P lap roland n/v pain; Additional info: Abd pain post op TECHNIQUE: Imaging protocol: Computed tomography of the abdomen and pelvis with intravenous contrast. Radiation optimization: All CT scans at this facility use at least one of these dose optimization techniques: automated exposure control; mA and/or kV adjustment per patient size (includes targeted exams where dose is matched to clinical indication); or iterative reconstruction. Contrast material: OMNI 300; Contrast volume: 95 ml; Contrast route: INTRAVENOUS (IV); COMPARISON: US gall bladder [id number] 11/10/2019 7:31 AM RADIATION DOSE METRICS: Total DLP (mGy-cm): 1550.31 FINDINGS: Mediastinal space: There is mild mucosal thickening of the distal esophagus. Consider esophagitis. Liver: There is a diffuse decrease in hepatic parenchymal density, consistent with fatty infiltration. There is a 5 mm hypodensity at the dome of the liver which most likely reflects a small cyst or hemangioma. There is a diffuse decrease in hepatic parenchymal density, consistent with fatty infiltration. Gallbladder and bile ducts: Cholecystectomy. Cholecystectomy. Pancreas: The pancreas is normal. Spleen: Splenomegaly. The spleen measures to 14.6 x 13.1 x 4.4 cm in greatest dimension. Adrenals: The adrenal glands are normal. Kidneys and ureters: The kidneys are normal. There is punctate, nonobstructing right nephrolithiasis. Stomach and bowel: The stomach is normal. Retained fecal material is noted in the colon. No bowel obstruction. Appendix: No evidence of appendicitis. Intraperitoneal space: Small amount of fluid in the right pericolic gutter. There is small to moderate amount fluid in the dependent pelvis which is blood density. No free air identified. Vasculature: The vasculature is normal. Lymph nodes: No lymphadenopathy is seen. Urinary bladder: The bladder is normal. Reproductive: Unremarkable as visualized. Bones/joints: Unremarkable. No acute fracture. Soft tissues: There is infiltration the superficial fat of the left anterior abdominal wall. CT/CT abdomen pelvis w con* [id number] IMPRESSION: 1. Small to moderate amount fluid in the dependent pelvis which has the density of blood. 2. Hepatic steatosis. 3. Splenomegaly. 4. Mild mucosal thickening of the distal esophagus. Consider esophagitis. 5. Nonobstructing right nephrolithiasis. Radiation Dose CTDIVOL = (mGy): DLP = 1550.31 (mGy-cm) Pt has been given 1 liter of normal saline bolus as well as a total of Zofran 8 mg, Reglan 10 mg and scopamine patch and despite this patient continues to vomit. I called and discussed this with Dr. Perdue who agrees to admit patient for observation IV fluids and antimetics. H&H are stable. Labs do not reveal any conerning or critical findings. At this time, I will plan on admitting patient for observation to Dr. Perdue. Lab Data: Labs: Lab Results 01/27/20 01/27/20 01/27/20 Range/Units 11:00 11:00 13:04 WBC 10.0 (4.0-10.0) 10^3/ uL RBC 4.30 (4.1-5.3) 10^6/u L Hgb 13.7 (11.5-15.3) g/dL Hct 39.1 (37.0-47.0) % MCV 90.9 (81-99) fL MCH 31.9 (28.0-34.0) pg MCHC 35.0 (30.0-36.0) g/dL RDW 12.3 (12.1-15.1) % Plt Count 174 (130-400) 10^3/c mm MPV 11.7 H (7.4-10.4) fL Neut % (Auto) 90.6 % Lymph % (Auto) 5.7 % [place] % (Auto) 3.0 % Eos % (Auto) 0.4 % Baso % (Auto) 0.1 % Neut # (Auto) 9.10 H (1.8-7.7) 10^3/u L Lymph # (Auto) 0.6 L (0.8-4.8) 10^3/u L [place] # (Auto) 0.3 (0.2-0.9) 10^3/u L Eos # (Auto) 0.0 (0.0-0.8) 10^3/u L Baso # (Auto) 0.0 (0.0-0.1) 10^3/u L Nucleated RBC % (a uto) 0 % Nucleated RBCs # 0.0 /100WBC Sodium 137 (136-145) mmol/L Potassium 3.5 (3.5-5.1) mmol/L Chloride 103 (98-107) mmol/L Carbon Dioxide 20 L (22-29) mmol/L Anion Gap 17.5 (5-19) BUN 6 (6-20) mg/dL Creatinine 0.6 (0.5-0.9) mg/dL GFR Calculation 115.9 (90-130) mL/min Glucose 117 H (65-115) mg/dL Calculated Osmolal ity 283 L (285-295) mOsm/k g Lactate (0.5-2.2) mmol/L Calcium 9.7 (8.5-10.5) mg/dL Total Bilirubin 0.3 (0.15-1.2) mg/dL AST 19 (0-32) U/L ALT 26 (0-33) U/L Alkaline Phosphata se 79 (35-105) IU/L Total Protein 7.5 (6.6-8.7) g/dL Albumin 4.6 (3.5-5.2) g/dL Globulin 2.9 (1.3-4.6) g/dL Lipase 15 (13-60) U/L Urine Color Yellow (Yellow) Urine Appearance Sl hazy (CLEAR) Urine pH 5.0 (5-7) Ur Specific Gravit y 1.025 (1.005-1.030) Urine Protein Neg (Negative) Urine Glucose (UA) Norm (Normal) Urine Ketones 3+ H (Negative) Urine Blood 3+ H (Negative) Urine Nitrate Negative (Negative) Urine Bilirubin Neg (Negative) Urine Urobilinogen Norm (Negative) mg/dL Ur Leukocyte Eleni ase Negative (Negative) Urine RBC 10-15 H (0-2) /hpf Urine WBC None (0-5) /hpf Ur Squamous Epith Cells 15-25 H (0-5) /hpf Amorphous Sediment Not Reportable Urine Bacteria 2+ H (NONE) /hpf Urine Mucus 1+ /hpf 01/27/20 Range/Units 14:10 WBC (4.0-10.0) 10^3/ uL RBC (4.1-5.3) 10^6/u L Hgb (11.5-15.3) g/dL Hct (37.0-47.0) % MCV (81-99) fL MCH (28.0-34.0) pg MCHC (30.0-36.0) g/dL RDW (12.1-15.1) % Plt Count (130-400) 10^3/c mm MPV (7.4-10.4) fL Neut % (Auto) % Lymph % (Auto) % [place] % (Auto) % Eos % (Auto) % Baso % (Auto) % Neut # (Auto) (1.8-7.7) 10^3/u L Lymph # (Auto) (0.8-4.8) 10^3/u L [place] # (Auto) (0.2-0.9) 10^3/u L Eos # (Auto) (0.0-0.8) 10^3/u L Baso # (Auto) (0.0-0.1) 10^3/u L Nucleated RBC % (a uto) % Nucleated RBCs # /100WBC Sodium (136-145) mmol/L Potassium (3.5-5.1) mmol/L Chloride (98-107) mmol/L Carbon Dioxide (22-29) mmol/L Anion Gap (5-19) BUN (6-20) mg/dL Creatinine (0.5-0.9) mg/dL GFR Calculation (90-130) mL/min Glucose (65-115) mg/dL Calculated Osmolal ity (285-295) mOsm/k g Lactate 0.9 (0.5-2.2) mmol/L Calcium (8.5-10.5) mg/dL Total Bilirubin (0.15-1.2) mg/dL AST (0-32) U/L ALT (0-33) U/L Alkaline Phosphata se (35-105) IU/L Total Protein (6.6-8.7) g/dL Albumin (3.5-5.2) g/dL Globulin (1.3-4.6) g/dL Lipase (13-60) U/L Urine Color (Yellow) Urine Appearance (CLEAR) Urine pH (5-7) Ur Specific Gravit y (1.005-1.030) Urine Protein (Negative) Urine Glucose (UA) (Normal) Urine Ketones (Negative) Urine Blood (Negative) Urine Nitrate (Negative) Urine Bilirubin (Negative) Urine Urobilinogen (Negative) mg/dL Ur Leukocyte Eleni ase (Negative) Urine RBC (0-2) /hpf Urine WBC (0-5) /hpf Ur Squamous Epith Cells (0-5) /hpf Amorphous Sediment Urine Bacteria (NONE) /hpf Urine Mucus /hpf Discharge Plan Discharge Prescriptions: No Action cyclobenzaprine 10 mg tablet 10 mg PO TID Qty: 30 RF: 1 scopolamine base 1 mg over 3 days patch 3 day 1 patch TRANSDERMA Q3D PRN (Reason: nausea and vomiting) Qty: 4 RF: 0 diphenhydramine-acetaminophen [Tylenol PM Extra Strength] 25-500 mg Tablet 1 - 2 tab PO PRN RF: 0 hydrocodone-acetaminophen [[place]] 5-325 mg tablet 1 tab PO Q6H PRN (Reason: pain) Qty: 28 RF: 0 ondansetron 4 mg tablet,disintegrating 4 mg PO Q6H PRN (Reason: nausea and vomiting) Qty: 10 RF: 0 pantoprazole [Protonix] 40 mg tablet,delayed release (DR/EC) 40 mg PO DAILY 30 Days Qty: 30 RF: 2 Coding Level of Care Code ED Assembler Carbon Brushes for Chg Fwd Exam Comprehensive
[2020-01-27 14:35] LABS: Lactate (Lactic Acid level) 0.9 mmol/L (0.5-2.2)
[2020-01-27] MEDS: iohexol 300 mg/mL 50 mL Btl IV (15:17)
[2020-01-27] MEDS: iohexol 300 mg/mL 100 mL Btl IV (15:17)
[2020-01-27] MEDS: metoclopramide 5 mg/mL SDV 2 mL 10 MG IVP (15:31)
--- NOTE | 2020-01-27 17:14 | PC.NURSE ---
pt report called to Irene MUSE in SBAR format.
[2020-01-27] MEDS: sucralfate 1 gm/10 mL Oral Liq UDC PO (18:36)
[2020-01-27] MEDS: sodium chloride 0.9% 1,000 ML 125 ML IV (18:36)
[2020-01-27] MEDS: metoclopramide 5 mg/mL SDV 2 mL IVP (19:58)
[2020-01-27] MEDS: famotidine 20 mg/2 mL INJ IVP (19:58)
[2020-01-27] MEDS: cyclobenzaprine 10 mg Tablet PO (21:41)
[2020-01-28] VITALS (14 sets, daily range): BP systolic 111–148; BP diastolic 75–93; PULSE 63–75; RESP 16–20; TEMP 36.7–36.9; O2SAT 95–99
[2020-01-28] MEDS: sucralfate 1 gm/10 mL Oral Liq UDC PO ×3 (01:55→17:42)
[2020-01-28] MEDS: sodium chloride 0.9% 1,000 ML 125 ML IV ×3 (01:55→21:33)
[2020-01-28] MEDS: metoclopramide 5 mg/mL SDV 2 mL IVP ×3 (02:09→17:42)
[2020-01-28] MEDS: HYDROcodone-acetaminophen 5-325 mg Tablet 1 TAB PO (03:13)
[2020-01-28 04:48] LABS: Basophils % 0.3 %; Eosinophils % 0.3 %; Hematocrit 33.5 % (37.0-47.0); Hemoglobin 11.8 g/dL (11.5-15.3); Lymphocytes # 0.9 10^3/uL (0.8-4.8); Lymphocytes % 12.3 %; Mean Corpuscular HGB Conc 35.2 g/dL (30.0-36.0); Mean Corpuscular Hemoglobin 31.9 pg (28.0-34.0); Mean Corpuscular Volume 90.5 fL (81-99); Mean Platelet Volume 11.3 fL (7.4-10.4); Monocytes # 0.4 10^3/uL (0.2-0.9); Monocytes % 5.9 %; Neutrophils # 5.84 10^3/uL (1.8-7.7); Neutrophils % 80.6 %; Nucleated Red Blood Cells % 0 %; Platelet Count 139 10^3/cmm (130-400); Red Cell Distribution Width 12.4 % (12.1-15.1); White Blood Count 7.2 10^3/uL (4.0-10.0)
[2020-01-28 05:15] LABS: Alanine Aminotransferase 20 U/L (0-33); Albumin Level 4.1 g/dL (3.5-5.2); Alkaline Phosphatase 70 IU/L (35-105); Anion Gap 12.7 (5-19); Aspartate Amino Transferase 11 U/L (0-32); Blood Urea Nitrogen 5 mg/dL (6-20); Calcium 8.8 mg/dL (8.5-10.5); Carbon Dioxide 20 mmol/L (22-29); Chloride 105 mmol/L (98-107); Globulin 2.4 g/dL (1.3-4.6); Glucose 121 mg/dL (65-115); Osmolality Calculated 279 mOsm/kg (285-295); Sodium 135 mmol/L (136-145); Total Bilirubin 0.4 mg/dL (0.15-1.2); Total Protein 6.5 g/dL (6.6-8.7)
[2020-01-28 05:21] LABS: Potassium 2.7 mmol/L (3.5-5.1)
--- NOTE | 2020-01-28 05:46 | P.PN_ITS ---
Subjective Subjective: Interval history: Patient overall is better today. Potassium came back as 2.7 with morning labs. Continues to have pain induced nausea and vomiting. Marginal urine output. Tolerated some sips and some Sprite. Vitals/I&O/Wt Last Vital Signs Temp 98.4 F 01/28/20 03:00 Pulse 70 01/28/20 03:00 Resp 18 01/28/20 03:00 BP 141/92 01/28/20 03:00 Pulse Ox 98 01/28/20 03:00 01/27/20 01/27/20 01/28/20 14:59 22:59 06:59 Intake Total 1154.583 / 1154.583 Output Total 100 / 100 550 / 650 Balance -100 / -100 604.583 / 504.583 Weight last 48 hrs Weight 220 lb Physical Exam Narrative: EXAM NARRATIVE: Patient is conscious alert oriented X3 BMI 37 Head and neck examination PERRLA no masses no cervical lymphadenopathy no jaundice Abdomen less tender at the periumbilical area nondistended soft no organomegaly guarding or rigidity/no signs of peritonitis Extremities no cyanosis no clubbing no edema Data : 01/28/20 04:34 01/28/20 04:34 A&P Assessment and plan (1) Vomiting: Will replace potassium by 40 mEq IV in the form of potassium chloride. A liter bolus of LR due to the higher content of potassium. We will place the patient on cardiac monitoring to monitor any telemetry changes with hypokalemia. We will add Phenergan 12.5 mg p.o. every 6 hours as needed for nausea and vomiting Will schedule oxycodone 5 mg p.o. every 6 hours for better pain control. Encourage ambulation Continue Carafate, scopolamine patch and Pepcid IV. Ice packs 3-4 times a day Repeated physical examination and evaluation through the day Once patient's symptoms are under better control with plan to discharge home today. Assurance and education All questions have been answered and all concerns have been addressed to patient's satisfaction. Status: Acute Qualifiers: Nausea presence: with nausea Vomiting Intractability: non-intractable Vomiting type: unspecified Qualified Code(s): R11.2 - Nausea with vomiting, unspecified Attestations Medical Necessity Statement*: Observation status for management of nausea vomiting and postoperative pain. In addition to replacement of electrolytes. Time Spent in Patient Care: (>than 50% of time spent in counselling and/or direct pt care on unit) . Coding Level of Care Code Acute Seeing Eye Dog Trainer for g Fwd Diagnoses Vomiting R11.2 Nausea presence: with nausea Vomiting Intractability: non-intractable Vomiting type: unspecified
[2020-01-28] MEDS: lactated ringers 1,000 ML 999 ML IV (06:05)
[2020-01-28] MEDS: potassium chloride premix 40 MEQ/100 ML PREMIX 25 MEQ IV (06:06)
[2020-01-28] MEDS: morphine 4 mg/mL SDV 1 mL 2 MG IVP ×5 (06:21→17:41)
[2020-01-28] MEDS: promethazine 25 mg Tablet 12.5 MG PO ×3 (06:21→20:42)
--- NOTE | 2020-01-28 06:29 | PC.NURSE ---
SHIFT SUMMARY Has been nauseated with dry heaves and some spitting up of clear to green liquid off & on through night. Says the IV Reglan is working better but just comes right back. Has had sips of Sprite. c/o abd pain with little relief with po Hydrocodone. Dr Colunga here this am and is aware of critical K+ of 2.7. 40meq K-rider started. Also reported voiding of 100-150 at a time tonight. Liter of LR bolus has been started to run over 1 hour. Given IV Morphine for pain. Ice pack to abdomen. Also given po Phenergan for continued nausea. Has been up ambulating in bundy X3 tonight with nurse. Last time she c/o feeling dizzy and quite weak. Abd soft with surgical stab incisions X4 from recent lap choley all closed with dermabond. Some small bruising noted at sites.
[2020-01-28] MEDS: famotidine 20 mg/2 mL INJ IVP ×2 (07:55→19:32)
[2020-01-28] MEDS: oxyCODONE 5 mg IR Tab/Cap PO ×3 (07:56→19:41)
[2020-01-28] MEDS: ondansetron 2 mg/ML SDV 2 mL 4 MG IVP ×2 (07:57→15:13)
[2020-01-28] MEDS: cyclobenzaprine 10 mg Tablet PO ×3 (09:31→20:43)
--- NOTE | 2020-01-28 11:37 | PC.CHAP ---
Pastoral Care Encounter/Spiritual Assessment Type of Contact [] Declined valet visit [] Patient/Family/Request visit [] Outpatient visit [] Follow-up visit [] Physician referral [] Code/Alert [X] Routine visit [] Staff referral [] Actively dying [] Patient sleeping [] Family support [] [] Out of room [] Palliative care [] [] Receiving care in room [] Pre-surgical visit [] Trauma [] Long length of stay [] ICU visit [] Other: Relational/Emotional Strength [] Patient feels connected with others/family/visitors/staff [] Distress [] Loneliness/isolation [] Abandonment Spirituality of Patient [] Person of Gloria [] Attends Hoahaoism of their Gloria [] Believes in Prayer [] Reads Bible or Christian materials [] There are Spiritual issues to be addressed Heavy Equipment Field Mechanic Interventions [] Prayer [] Active listening [] Non-anxious presence [] Spiritual/emotional support [] Crisis/trauma care [] Spiritual counseling [] Bereavement support [] Provided bereavement packet [] Provided Bible/devotional materials [] Provided toy/stuffed animal, coloring book to patient or family member [] Provided Communion [] Anointing/[place] [] Salvation [] Completed spiritual assessment [] Other: Impact on Illness or Injury [] Angry [] Fearful [] Anxious [] Often cries [] Exhaustion [] Unable to work [] Unable to attend voodoo [] Unable to walk/stand [] Unable to read [] Unable to drive [] Unable to eat/drink [] Unable to sleep [] Unable to be with family [] Patient intubated [] Other: Summary Time spent with patient
[2020-01-28 14:38] LABS: Anion Gap 12.6 (5-19); Blood Urea Nitrogen 3 mg/dL (6-20); Calcium 9.2 mg/dL (8.5-10.5); Carbon Dioxide 24 mmol/L (22-29); Chloride 104 mmol/L (98-107); Glomerular Filtration Rate 115.9 mL/min (90-130); Glucose 98 mg/dL (65-115); Osmolality Calculated 281 mOsm/kg (285-295); Potassium 3.6 mmol/L (3.5-5.1); Sodium 137 mmol/L (136-145)
--- NOTE | 2020-01-28 18:23 | PC.NURSE ---
SHIFT SUMMARY PT STARTED THIS SHIFT WITH NAUSEA AND UNCONTROLLED PAIN. THIS NURSE HAS GIVEN MORPHINE ALMOST EVERY TWO HOURS ALONG WITH OXYCODONE IR TWICE AND HER PAIN HAS BEEN UNDER CONTROL. THIS NURSE HAS ALTERNATED REGLAN, ZOFRAN, AND PHENERGAN AND PTS NAUSEA HAS BEEN UNDER CONTROL WELL. PT HAS AMBULATED 4 TIMES TODAY AND HAS IMPROVED EACH TIME. PT WAS UP TO THE SHOWER TODAY AND TOLERATED THAT WELL. PT IS TOLERATING CLEAR LIQUIDS AND HAS VOIDED APPROPRIATELY BASED OFF OF HER INTAKE. THE PLAN IS TO KEEP HER AGAIN TONIGHT AND DRAW LABS IN THE MORNING AND THEN SEND HER HOME IF LABS ARE NORMAL AND PAIN AND NAUSEA ARE CONTROLLED THROUGHOUT THE NIGHT. CONTINUE TO MONITOR.
[2020-01-29] VITALS (12 sets, daily range): BP systolic 130–143; BP diastolic 76–97; PULSE 66–84; RESP 16–22; TEMP 36.6–37.1; O2SAT 97–100
[2020-01-29] MEDS: morphine 4 mg/mL SDV 1 mL 2 MG IVP ×4 (00:22→08:54)
[2020-01-29] MEDS: metoclopramide 5 mg/mL SDV 2 mL IVP ×2 (00:22→06:46)
[2020-01-29] MEDS: promethazine 25 mg Tablet 12.5 MG PO ×2 (02:14→03:07)
[2020-01-29] MEDS: oxyCODONE 5 mg IR Tab/Cap PO ×3 (02:14→12:16)
[2020-01-29] MEDS: sucralfate 1 gm/10 mL Oral Liq UDC PO ×3 (02:14→10:37)
--- NOTE | 2020-01-29 02:24 | PC.NURSE ---
NAUSEA/VOMITING/PAIN Pt felt well until couple of hours ago when started having c/o abd pain and nausea. Had received the scheduled OXYIR and Phenergan po already. RN medicated with IV Morphine and Reglan. Helped for awhile and now having nausea with some emesis of clear liquid. Throwing up and heaving causes increased abd pain. Due for scheduled OXYIR and was going to repeat the po Phenergan but afraid can't keep meds down. RN repeating IV Morphine and giving IV Zofran as well. Will give po meds when able to keep down
[2020-01-29] MEDS: ondansetron 2 mg/ML SDV 2 mL 4 MG IVP (02:27)
[2020-01-29] MEDS: sodium chloride 0.9% 1,000 ML 125 ML IV (04:40)
--- NOTE | 2020-01-29 06:07 | PC.NURSE ---
SHIFT SUMMARY Pt with several meds alternated tonight for nausea and abdominal pain c/o. These meds included po Oxyir and Phenergan and IV meds of Reglan, Zofran and Morphine. Says most of pain is in upper left abdomen. Has used ice packs off & on this shift. Ambulated in bundy to good [place].X2. Still no BM since surgery. + flatus. All surgical stab wounds closed with dermabond. Some bruising at sites. Abd soft but says feels bloated. Is tender with palpation
[2020-01-29 06:13] LABS: Anion Gap 15.9 (5-19); Blood Urea Nitrogen 4 mg/dL (6-20); Calcium 8.9 mg/dL (8.5-10.5); Carbon Dioxide 20 mmol/L (22-29); Chloride 104 mmol/L (98-107); Glucose 115 mg/dL (65-115); Osmolality Calculated 282 mOsm/kg (285-295); Sodium 137 mmol/L (136-145)
[2020-01-29 07:08] LABS: Potassium 2.9 mmol/L (3.5-5.1)
--- NOTE | 2020-01-29 07:33 | PM.PN ---
Subjective Subjective: Interval history: Patient is improving slowly and she continues to have dry heaving.Tolerating fairly p.o. intake. Potassium today reported as 2.9 Vitals/I&O/Wt Last Vital Signs Temp 97.8 F 01/29/20 03:00 Pulse 66 01/29/20 03:00 Resp 16 01/29/20 04:44 BP 142/76 01/29/20 03:00 Pulse Ox 97 01/29/20 03:03 01/28/20 01/29/20 01/29/20 22:59 06:59 14:59 Intake Total 1070 / 3260 1009.583 / 4269.583 Output Total 1000 / 1250 500 / 1750 125 / 125 Balance 2009 509.583 / 2519.583 -125 / -125 Weight last 48 hrs Weight 220 lb Physical Exam Narrative: EXAM NARRATIVE: Patient is conscious alert oriented X3 BMI 37 Head and neck examination PERRLA no masses no cervical lymphadenopathy no jaundice Cardiac examination audible S1-S2 no murmurs no gallops no arrhythmias Chest is clear bilateral,abscence of Rhonchi or wheezes,no surgical emphysema Abdomen much less tender nondistended soft no organomegaly guarding or rigidity/no signs of peritonitis, incisions are clean dry and intact. Data : 01/28/20 04:34 01/29/20 04:40 A&P Assessment and plan (1) Vomiting: Will replace potassium by 40 mEq IV in the form of potassium chloride. We will switch IV fluids to LR at 125 mL/h Continue cardiac monitoring to monitor any telemetry changes with hypokalemia. Incentive spirometer every hour Encourage ambulation Continue Carafate, scopolamine patch and Pepcid IV. Ice packs 3-4 times a day Repeated physical examination and revaluation through the day. Once patient's symptoms are under better control able to tolerate well p.o. intake to keep hydrated there after will plan to discharge home today. Assurance and education All questions have been answered and all concerns have been addressed to patient's satisfaction. Status: Acute Qualifiers: Nausea presence: with nausea Vomiting Intractability: non-intractable Vomiting type: unspecified Qualified Code(s): R11.2 - Nausea with vomiting, unspecified Attestations Medical Necessity Statement*: Observation status for management of nausea vomiting and postoperative pain control.In addition to replacement of electrolytes. Time Spent in Patient Care: (>than 50% of time spent in counselling and/or direct pt care on unit). 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
[2020-01-29] MEDS: potassium chloride premix 40 MEQ/100 ML PREMIX 25 MEQ IV (07:52)
[2020-01-29] MEDS: famotidine 20 mg/2 mL INJ IVP (07:53)
[2020-01-29] MEDS: lidocaine 1% INJ 20 mL 5 ML IV (07:53)
[2020-01-29] MEDS: cyclobenzaprine 10 mg Tablet PO ×2 (08:54→15:21)
[2020-01-29] MEDS: lactated ringers 1,000 ML 125 ML IV (10:36)
--- NOTE | 2020-01-29 14:06 | P.SS_ITS ---
Short Stay Summary Providers Date of Admit/Discharge: 01/29/20 Attending Provider: Xaveir Colunga MD Chief Complaint: N/V HPI History of Present Illness Ms. Sadia Mckoy is a 34 year old female undergone uneventful laparoscopic cholecystectomy last Thursday. Patient was discharged home safely. There after she encountered nausea and vomiting that did not respond well to Zofran and oral hydration and had to come to the emergency department where she was treated conservatively and was discharged home from the ED there after. Last Thursday she represented to the emergency department with worsening symptoms and was given IV fluids and I had to admit the patient on my service for observation due to intractable nausea and vomiting. A CT scan of the abdomen and pelvis was done because of the pain that the patient was encountering although her physical examination did not show peritonitis. That the CT scan showed: IMPRESSION: 1. Small to moderate amount fluid in the dependent pelvis which has the density of blood. 2. Hepatic steatosis. 3. Splenomegaly. 4. Mild mucosal thickening of the distal esophagus. Consider esophagitis. 5. Nonobstructing right nephrolithiasis. Review of Systems General: Reports: 10 or more systems reviewed and unremarkable except in HPI and below Home Meds/Allergies Home Medications and Allergies Home Medications Medication Instructions Recorded Confirmed Type diphenhydramine-acetaminophen 1 - 2 tab PO PRN 01/25/20 01/27/20 History [Tylenol PM Extra Strength] Allergies Allergy/AdvReac Type Severity Reaction Status Date / Time No Known Allergies Allergy Verified 01/29/20 14:08 PFSH Acute PFSH: Medical History Cholelithiasis Chronic nausea Chronic vomiting Epigastric pain Family hx of colon cancer requiring screening colonoscopy GERD (gastroesophageal reflux disease) Surgical History History of 2 sections History of ankle surgery Right tibia screws History of bilateral tubal ligation Family History Other Cancer Diabetes Hypertension Stroke Denies family history of Dementia Chronic kidney disease (CKD) Social History Smoking and tobacco status: current every day smoker Second hand smoke exposure: Yes Smoking risk assessment/counseling performed?: Yes Alcohol intake: former Desire information about alcohol rehabilitation?: No Counseling given: No Caregiver/support person: No Lives independently: Yes Household members: spouse Housing: House Marital status: Number of children: 2 service: No Current occupational status: unemployed History of recent travel: No Current gender identity: Female Female Reproductive History: Date of last menstrual period: 01/25/20 Vitals/I&O/Wt Last Vital Signs Temp 98.5 F 01/29/20 11:00 Pulse 84 01/29/20 13:05 Resp 17 01/29/20 13:05 BP 141/97 01/29/20 11:00 Pulse Ox 98 01/29/20 13:05 01/28/20 01/29/20 01/29/20 22:59 06:59 14:59 Intake Total 1070 / 3260 1009.583 / 4269.583 240 / 240 Output Total 1000 / 1250 500 / 1750 125 / 125 Balance 2009 509.583 / 2519.583 115 / 115 Physical Exam Narrative: EXAM NARRATIVE: Patient is conscious alert oriented X3 BMI 37 Head and neck examination PERRLA no masses no cervical lymphadenopathy no jaundice Cardiac examination audible S1-S2 no murmurs no gallops no arrhythmias Chest is clear bilateral,abscence of Rhonchi or wheezes,no surgical emphysema Abdomen much less tender nondistended soft no organomegaly guarding or rigidity/no signs of peritonitis, incisions are clean dry and intact. Hospital Course Admission Diagnoses: Nausea and vomit Hospital Course: Patient responded well to IV fluid hydration and potassium replacement. Addition of Phenergan and oxycodone did help the patient a lot in addition to an abdominal binder. She maintained to have good urine output and passing gas and tolerating well p.o. intake. Discharge Summary: Patient admitted after elective on event for laparoscopic cholecystectomy for intractable nausea and vomiting likely pain induced. Appropriate pain control achieved by IV morphine as well as p.o. oxycodone. Addition of Phenergan helped the patient with her nausea and vomiting in addition already existing scopolamine patch. Zofran and metoclopramide were added as well. Finally the patient responded well and tolerated p.o. intake. Repeat potassium in the afternoon came as 3.0, will plan to give the patient one-time dose of p.o. potassium 40 mEq and will emphasize on p.o. intake of fruits and vegetables with particular focus on potassium rich diet including bananas. And will discharge patient home on some p.o. potassium for a few days. SSS Data Data Completed and Pending: Completed Studies During Hospitalization Category Date Time Status CT abdomen pelvis w con* [id number] Urge nt Cat Scan 01/27/20 13:28 Completed Pending at discharge Category Date Time Status Basic Metabolic P leonela Timed Lab 01/29/20 14:00 Ordered Diagnoses at Discharge Discharge Diagnosis (1) Vomiting: Status: Resolved Problem details: Condition resolved and patient responded well to the addition of Phenergan and oxycodone. Qualifiers: Nausea presence: with nausea Vomiting Intractability: non-intractable Vomiting type: unspecified Qualified Code(s): R11.2 - Nausea with vomiting, unspecified Discharge Plan Discharge Patient Disposition: Home Condition: Stable Prescriptions: New oxycodone 10 mg tablet 10 mg PO Q6H PRN (Reason: pain) Qty: 28 RF: 0 promethazine 12.5 mg tablet 12.5 mg PO TID PRN (Reason: nausea and vomiting) Qty: 30 RF: 1 potassium chloride 20 mEq packet 20 meq PO DAILY Qty: 5 RF: 0 Continued cyclobenzaprine 10 mg tablet 10 mg PO TID Qty: 30 RF: 1 scopolamine base 1 mg over 3 days patch 3 day 1 patch TRANSDERMA Q3D PRN (Reason: nausea and vomiting) Qty: 4 RF: 0 diphenhydramine-acetaminophen [Tylenol PM Extra Strength] 25-500 mg Tablet 1 - 2 tab PO PRN RF: 0 ondansetron 4 mg tablet,disintegrating 4 mg PO Q6H PRN (Reason: nausea and vomiting) Qty: 10 RF: 0 pantoprazole [Protonix] 40 mg tablet,delayed release (DR/EC) 40 mg PO DAILY 30 Days Qty: 30 RF: 2 Discontinued hydrocodone-acetaminophen [[place]] 5-325 mg tablet 1 tab PO Q6H PRN (Reason: pain) Qty: 28 RF: 0 Discharge Orders: Discharge Order (Routine); Ordered 01/29/20 Ordered By: Xavier Colunga Referrals: Xavier Colunga MD [Physician] - (Please keep your follow up appointment to see Dr. Ceolho.) Discharge Diet: Advance as tolerated Discharge Activity: Limit activity as instructed Patient Instructions: Oxycodone/Acetaminophen (By mouth), Promethazine (By mouth), Laparoscopic Cholecystectomy (DC), Acute Nausea and Vomiting (GEN) Activity Restrictions/Additional Instructions: 1. Patient can shower after 48 hours from surgery 2. Remove Dermabond 7 to 10 days after surgery, if there is a secondary dressing can take down after 48 hours. 3. Up and walking as tolerated 4. Do lift more than 5 pounds first 2 weeks after surgery and not more than 25 p ounds 6 to 8 weeks after surgery. 5. Do not operate heavy machinery or drive while using pain medications. 6.Contact the office or return to the ER for worsening nausea vomiting fevers or chills, or noticing any redness around incision sites or discharge. Attestations Medical Necessity Statement*: Observation status for management of intractable nausea and vomiting with IV fluid resuscitation and replacement of electrolytes in addition to pain control. Time Spent in Patient Care*: greater than 30 min Time Spent in Smoking Cessation: Time spent discussing smoking cessation with patient: 3 to 10 minutes Specific Discharge Activities: Specific discharge activities: educating patient and educating and/or supporting family/caregiver Status at Discharge: Cognitive status at discharge: cognitively intact , Behavioral status at discharge: cooperative , Functional status at discharge: independent ambulation Overall status at discharge: patient is progressing back to baseline Quality Metrics Clinical Quality Measures: During this hospital stay, did patient experience: None Coding Level of Care Code Acute 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
[2020-01-29 15:12] LABS: Blood Urea Nitrogen 3 mg/dL (6-20); Calcium 9.2 mg/dL (8.5-10.5); Carbon Dioxide 23 mmol/L (22-29); Chloride 103 mmol/L (98-107); Glucose 101 mg/dL (65-115); Osmolality Calculated 281 mOsm/kg (285-295); Sodium 137 mmol/L (136-145)
[2020-01-29] MEDS: potassium chloride ER 10 mEq Tablet 40 MEQ PO (16:10)
--- NOTE | 2020-01-30 15:16 | PC.RESP ---
Smoking Cessation information sent to patient.
== END 2020-01-29 16:32 | disposition home or self-care (01) ==
LOC: ER 16:18 → MEDSURG 16:54
PROVIDERS: Emergency Medicine; Registered Nurse; Admitting Provider Surgery; Visit Provider Surgery
DX: R11.2 Nausea with vomiting, unspecified (principal); Z80.0 Family history of malignant neoplasm of digestive organs; Z82.49 Family history of ischemic heart disease and other diseases of the circulatory system; Z83.3 Family history of diabetes mellitus; Z82.3 Family history of stroke; F17.210 Nicotine dependence, cigarettes, uncomplicated
CPT/HCPCS: 12345; 36415; 74177; 80048; 80053; 81001; 83605; 83690; 85025; 96360; 96361; 96374; 96375; 96376; 99284; 99285; G0378; J2270; J2360; J2405; J2765; J3480; J3490; J7030; Q0169; Q9967

== ENCOUNTER → 2021-05-23 11:24 | Outpatient (BNVA) | payer BC, SELFPAY | PROVIDERS: Visit Provider Nurse Practitioner Family | DX: M54.50 Low back pain, unspecified (principal); L02.429 Furuncle of limb, unspecified; M25.552 Pain in left hip | CPT/HCPCS: 80053; 81000; 85025 ==

== ENCOUNTER → 2022-07-03 09:17 | Outpatient (BNVA) | payer BC, MEDICAID, SELFPAY | PROVIDERS: Visit Provider Nurse Practitioner Family | DX: N91.2 Amenorrhea, unspecified (principal) | CPT/HCPCS: 80053; 81025; 84443; 85025 ==

== ENCOUNTER → 2022-07-24 15:02 | Outpatient (BNVA) | payer BC, MEDICAID, SELFPAY | PROVIDERS: Referring Provider Nurse Practitioner Family; Visit Provider Nurse Practitioner Women's Health | DX: Z12.4 Encounter for screening for malignant neoplasm of cervix (principal) | CPT/HCPCS: 87624 ==

== ENCOUNTER 2023-03-09 13:05 | Emergency (ER) | payer BC, MEDICAID, SELFPAY ==
[2023-03-09 13:09] VITALS: BMI 42.9
[2023-03-09 13:13] VITALS: BP 166/101; PULSE 87; RESP 18; TEMP 36.4; O2SAT 98
[2023-03-09 13:30] LABS: Basophils % 0.3 %; Eosinophils # 0.1 10^3/uL (0.0-0.8); Hematocrit 43.2 % (36-47); Lymphocytes # 1.4 10^3/uL (0.8-4.8); Lymphocytes % 19.6 %; Mean Corpuscular HGB Conc 34.7 g/dL (30-55); Mean Corpuscular Hemoglobin 30.2 pg (27-33); Mean Corpuscular Volume 87.1 fl (85-98); Mean Platelet Volume 10.1 fL (7.4-10.4); Monocytes # 0.6 10^3/uL (0.2-0.9); Monocytes % 8.4 %; Neutrophils # 4.84 10^3/uL (1.8-7.7); Neutrophils % 69.7 %; Nucleated Red Blood Cells % 0 %; Platelet Count 240 10^3/cmm (157-399); Red Blood Count 4.96 10^6/uL (3.85-5.65); White Blood Count 6.94 10^3/uL (3.29-11.43)
[2023-03-09 13:46] LABS: HCG, Serum Qual Negative (Negative)
[2023-03-09 13:49] LABS: Alanine Aminotransferase 20 U/L (0-33); Albumin Level 4.6 g/dL (3.5-5.2); Alkaline Phosphatase 82 U/L (35-105); Anion Gap 16.4 (5-19); Aspartate Amino Transferase 21 U/L (0-32); Blood Urea Nitrogen 10 mg/dL (6-20); Calcium 9.6 mg/dL (8.5-10.5); Carbon Dioxide 23 mmol/L (22-29); Chloride 100 mmol/L (98-107); Globulin 3.1 g/dL (1.3-4.6); Glomerular Filtration Rate 81.6 mL/min (90-130); Glucose 125 mg/dL (65-115); Lipase 18 U/L (13-60); Osmolality Calculated 283 mOsm/kg (285-295); Potassium 3.4 mmol/L (3.5-5.1); Sodium 136 mmol/L (136-145); Total Bilirubin 0.6 mg/dL (0.15-1.2); Total Protein 7.7 g/dL (6.6-8.7)
[2023-03-09 14:13] VITALS: BP 159/107; PULSE 79; O2SAT 99
--- NOTE | 2023-03-09 14:53 | W.ED.ABDPA2 ---
HPI - Abdominal Pain General: Chief Complaint: Abdominal Pain Stated Complaint: abdomin pain Time Seen by Provider: 03/09/23 14:46 Source: patient Mode of arrival: ambulatory Limitations: no limitations History of Present Illness: Patient is a 37-year-old female presents to the emergency department complaining of abdominal pain onset 4 days. Patient states she has a history of chronic gastritis for which she has had worked up with a colonoscopy and other diagnostic procedures. She states that this pain is exactly the same, but is much worse than it usually is. It also has never lasted for this long, and seems to be worse in the left upper quadrant. The pain is sharp and constant, with no radiation or migration. The pain is worse by movement and has not been improved with [id number] pain medications. She notes associated nausea and vomiting as she states she cannot keep anything down and she feels dehydrated. She also states she has been urinating less, due to the decreased intake. She denies any fever, breathing difficulties, changes in bowel habits, hematuria, bloody stools, or any other symptoms. She denies any history of kidney stones. MD elicited complaint: abdominal pain Pertinent past history: gastritis Onset (ago): day(s) Pain Consistency: constant Location: LUQ Severity: severe Quality: sharp Radiation: none Migration to: no migration Exacerbating factors: movement Relieving factors: nothing Associated Symptoms: Reports nausea and vomiting; Denies bloating, change in bowel habits, chills, coffee ground emesis, constipation, diarrhea, dysuria, fever(s), hematuria and hematemesis Related Data: Date of Last Menstrual Period: 02/08/23 Review of Systems Const: Denies: fever(s) or chills ENMT: Denies: throat pain Card: Denies: chest pain Resp: Denies: dyspnea GI: Reports: abdominal pain, nausea and vomiting; Denies: hematemesis, coffee ground emesis, diarrhea, constipation, bloating or change in bowel habits : Reports: urinary frequency (Going less); Denies: flank pain, dysuria, urinary urgency or hematuria Musc: Denies: neck pain or back pain Skin/Breast: Denies: rash PFSH ED PFSH: Medical History Cholelithiasis Chronic nausea Chronic vomiting Duodenitis Epigastric pain Family hx of colon cancer requiring screening colonoscopy GERD (gastroesophageal reflux disease) No pertinent past medical history neghx:htn,dm,thyroid,dvt/pe 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 [facility] Surgical History History of 2 sections #1-- 2010 #2-- 2017 History of ankle surgery Right tibia screws History of bilateral tubal ligation (~2016) performed at the time of her in 2017 History of cholecystectomy (~12/2019) History of esophagogastroduodenoscopy (EGD) (~12/2019) Normal colonoscopy (~12/2019) Family History Sister Colon cancer dx'd at age 2323 years old - she in 2021 Father Diabetes Hypertension Hyperlipidemia Family/Other Diabetes Paternal Hypertension paternal Hyperlipidemia paternal Grandmother Stroke paternal Denies family history of Ovarian cancer Dementia Heart disease Chronic kidney disease (CKD) Breast cancer Uterine cancer Thyroid disease Social History Substance/Drug Use: never Do you think of yourself as: Straight/Heterosexual Female Reproductive History: Date of last menstrual period: 02/08/23 Physical Exam Const: COMMON NORMALS: no acute distress GENERAL APPEARANCE: cooperative and anxious NUTRITIONAL APPEARANCE: obese morbidly obese ORIENTATION/CONSCIOUSNESS: Yes awake, Yes oriented to person, Yes oriented to place and Yes oriented to time HENMT: COMMON NORMALS: normocephalic, atraumatic and hearing grossly normal bilaterally HEAD & SCALP: normocephalic and atraumatic Resp: COMMON NORMALS: normal respiratory effort, No retractions, No use of accessory muscles and clear to auscultation bilaterally AUSCULTATION: clear to auscultation bilaterally Cardio: COMMON NORMALS: regular rate, regular rhythm and No murmurs present (Cardio) RATE: regular rate RHYTHM: regular rhythm GI: COMMON NORMALS: Soft to palpation and No hepatosplenomegaly present INSPECTION: Yes normal to inspection AUSCULTATION: Yes normoactive bowel sounds PALPATION: Yes Soft to palpation, Yes Tenderness to palpation present (GI) Details: LUQ, Yes Guarding due to palpation present (GI) (Voluntary) in the LUQ, No Rigid due to palpation and Yes No hepatosplenomegaly present Extremity: COMMON NORMALS: normal to inspection, capillary refill normal, no clubbing, cyanosis or edema, no calf tenderness and no pedal edema Neuro: SENSORIUM/ORIENTATION: Yes oriented to person, Yes oriented to place and Yes oriented to time Skin: COMMON NORMALS: no rashes or lesions noted GENERAL SKIN EXAM: no rashes or lesions noted Course Vital Signs: Vital signs: Vital Signs Temperature 97.5 F L 03/09/23 13:13 Pulse Rate 67 03/09/23 15:58 Respiratory Rate 18 03/09/23 13:13 Blood Pressure 155/103 03/09/23 15:58 Pulse Oximetry 98 03/09/23 15:58 Oxygen Delivery Me thod Room Air 03/09/23 15:58 MDM - Abdominal Pain Medical Decision Making Suspect patient may have gastroparesis we will start her on Reglan stop the ondansetron have her follow-up with her primary care doctor consider possibility of gastric emptying study to further evaluate Medical Records I reviewed the patient's medical records. Lab Data I reviewed the patient's lab results. 03/09/23 13:03/09/23 13:23 Labs/Radiology: Laboratory Results WBC 6.94 10^3/uL (3.29-11.43) 03/09/23: RBC 4.96 10^6/uL (3.85-5.65) 03/09/23 13: Hgb 15.00 g/dL (11.27-16.99) 03/09/23 13: Hct 43.2 % (36-47) 03/09/23: MCV 87.1 fl (85-98) 03/09/23 13: MCH 30.2 pg (27-33) 03/09/23: MCHC 34.7 g/dL (30-55) 03/09/23: RDW 12.0 % (12.1-15.1) L 03/09/23: Plt Count 240 10^3/cmm (157-399) 03/09/23 13: MPV 10.1 fL (7.4-10.4) 03/09/23 13: Neut % (Auto) 69.7 % 03/09/23 13: Lymph % (Auto) 19.6 % 03/09/23 13:23 [place] % (Auto) 8.4 % 03/09/23 13: Eos % (Auto) 1.0 % 03/09/23 13: Baso % (Auto) 0.3 % 03/09/23 13: Neut # (Auto) 4.84 10^3/uL (1.8-7.7) 03/09/23: Lymph # (Auto) 1.4 10^3/uL (0.8-4.8) 03/09/23 13: [place] # (Auto) 0.6 10^3/uL (0.2-0.9) 03/09/23 13: Eos # (Auto) 0.1 10^3/uL (0.0-0.8) 03/09/23: Baso # (Auto) 0.0 10^3/uL (0.0-0.1) 03/09/23: Nucleated RBC % (auto) 0 % 03/09/23 13: Nucleated RBCs # 0.0 /100WBC 03/09/23 13: Sodium 136 mmol/L (136-145) 03/09/23 13: Potassium 3.4 mmol/L (3.5-5.1) L 03/09/23 13: Chloride 100 mmol/L (98-107) 03/09/23 13: Carbon Dioxide 23 mmol/L (22-29) 03/09/23 13: Anion Gap 16.4 (5-19) 03/09/23: BUN 10 mg/dL (6-20) 03/09/23 13: Creatinine 0.8 mg/dL (0.5-0.9) 03/09/23 13: GFR Calculation 81.6 mL/min (90-130) L 03/09/23 13: Glucose 125 mg/dL (65-115) H 03/09/23 13: Calculated Osmolality 283 mOsm/kg (285-295) L 03/09/23 13: Calcium 9.6 mg/dL (8.5-10.5) 03/09/23 13: Total Bilirubin 0.6 mg/dL (0.15-1.2) 03/09/23: AST 21 U/L (0-32) 03/09/23: ALT 20 U/L (0-33) 03/09/23: Alkaline Phosphatase 82 U/L (35-105) 03/09/23 13: Total Protein 7.7 g/dL (6.6-8.7) 03/09/23: Albumin 4.6 g/dL (3.5-5.2) 03/09/23: Globulin 3.1 g/dL (1.3-4.6) 03/09/23: Lipase 18 U/L (13-60) 03/09/23: HCG, Qual Negative (Negative) 03/09/23: Urine Color Yellow (Yellow) 03/09/23 16:00 Urine Appearance Sl hazy (CLEAR) A 03/09/23 16:00 Urine pH 6 (5-7) 03/09/23 16:00 Ur Specific [place] 1.025 (1.005-1.030) 03/09/23 16:00 Urine Protein Trace (Negative) 03/09/23 16:00 Urine Glucose (UA) Norm (Normal) 03/09/23 16:00 Urine Ketones 3+ (Negative) H 03/09/23 16:00 Urine Blood 2+ (Negative) H 03/09/23 16:00 Urine Nitrate Negative (Negative) 03/09/23 16:00 Urine Bilirubin 1+ (Negative) H 03/09/23 16:00 Urine Urobilinogen 1 mg/dL (Negative) H 03/09/23 16:00 Ur Leukocyte Esterase Negative (Negative) 03/09/23 16:00 Urine RBC 0-4 /hpf (0-2) H 03/09/23 16:00 Urine WBC 0-4 /hpf (0-5) H 03/09/23 16:00 Ur Squamous Epith Cells 0-4 /hpf (0-5) H 03/09/23 16:00 Calcium Oxalate Crystal 5-10 /hpf H 03/09/23 16:00 Amorphous Sediment Not Reportable 03/09/23 16:00 Urine Bacteria Trace /hpf (NONE) 03/09/23 16:00 Urine Mucus 2+ /hpf 03/09/23 16:00 No radiology studies performed this visit Discharge Plan Discharge Patient Disposition: Home Clinical Impression: Gastroparesis Condition: Stable Prescriptions: New Reglan 10 mg tablet 10 mg PO Q6H PRN (Reason: nausea and vomiting) Qty: 30 0RF Discontinued ondansetron 4 mg tablet,disintegrating 4 mg PO Q6H PRN (Reason: Nausea) No Action pantoprazole [Protonix] 40 mg tablet,delayed release (DR/EC) 40 mg PO DAILY 30 Days Qty: 30 5RF Discharge Orders: Discharge ED (Routine); Ordered 03/09/23 Ordered By: Ebenezer Carrera Referrals: Celsa Coelho FNP-C [Primary Care Provider] - Discharge Diet: Usual diet Discharge Activity: Resume usual activity Patient Instructions: Opioid Safety, Pain Management Activity Restrictions/Additional Instructions: Thank you for choosing [facility] for your healthcare needs today. Please realize this is an emergency room and that we are providing you with a medical screening exam and this may not be complete and all inclusive of all the testing and or work up that you may need to determine your ailment or severity of your illness. It is very important that you follow up as instructed or that you return to the Emergency Department should you have concerns or if your condition changes or worsens in any way. Follow-up with your primary care doctor. You may benefit from having a gastric emptying study done to evaluate for gastroparesis. 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
[2023-03-09] MEDS: promethazine 25 mg/mL SDV 1 mL IM (15:23)
[2023-03-09] MEDS: metoclopramide 5 mg/mL SDV 2 mL 10 MG IVP (15:46)
[2023-03-09] MEDS: acetaminophen 1,000 MG/100 ML PIGGYBACK 400 MG IV (15:48)
[2023-03-09] MEDS: sodium chloride 0.9% 1,000 ML 999 ML IV (15:48)
[2023-03-09 15:58] VITALS: BP 155/103; PULSE 67; O2SAT 98
[2023-03-09 16:25] LABS: Specific Gravity, Urine 1.025 (1.005-1.030); Urine Appearance SL Hazy (CLEAR); Urine Color Yellow (Yellow); pH Urine 6 (5-7)
[2023-03-09 16:26] LABS: Add Urine Culture? No; Add Urine Microscopic? YES; Bacteria Urine TRACE /hpf; Bilirubin Urine 1+ (Negative); Blood Urine 2+ (Negative); Glucose Urine UA Norm (Normal); Ketones Urine 3+ (Negative); Leukocyte Esterase Urine Negative (Negative); Mucus Urine 2+ /hpf; Nitrate Urine Negative (Negative); Protein Urine Trace (Negative); RBC Urine 0-4 /hpf (0-2); Squamous Epithelial Cell Urine 0-4 /hpf (0-5); Urobilinogen Urine 1 mg/dL (Negative); WBC Urine 0-4 /hpf (0-5)
== END 2023-03-09 17:17 | disposition home or self-care (01) ==
PROVIDERS: Emergency Medicine; Emergency Provider Family Medicine; PCP Nurse Practitioner Family
DX: K31.84 Gastroparesis (principal)
CPT/HCPCS: 80053; 81001; 83690; 84703; 85025; 96365; 96372; 96375; 99284; J0131; J2550; J2765; J7030

== ENCOUNTER 2023-04-01 09:34 | Outpatient (CLI) | payer BC, MEDICAID, SELFPAY ==
--- NOTE | 2023-04-01 10:00 | NM_ITS ---
WS: [id number] NUCLEAR MEDICINE GASTRIC STUDY CLINICAL INFORMATION: K31.84 - Gastroparesis TECHNIQUE: Following oral ingestion of cooked egg mixed with ? mCi technetium 99m sulfur colloid, anterior images of the stomach were obtained over the course of 90 minutes. Activity curve was perfor med over the course of 90 minutes with linear regression analysis. COMPARISON: None. FINDINGS: Ingestion of cooked egg mixture with technetium labeled sulfur colloid. T1/2 emptying= 350 minutes (normal 45-110) Only 2% emptying at 60 minutes 13% emptying at 120 minutes IMPRESSION: Significantly delayed gastric emptying compatible with gastroparesis in the appropriate clinical sett ing. *Normal median T1 half 90 minutes for solid egg meal (45-110 minutes). Delayed gastric retention is defined as 90% retained at 1 hour, 60% at 2 hours, 30% at 3 hours, and 10% at 4 hours (normal percent gastric retention is 37-90% at 1 hour, 30-60% at 2 hours, and 0-10% a t 4 hours).
== END 2023-04-01 09:35 | disposition home or self-care (01) ==
LOC: RAD 09:35
PROVIDERS: PCP Nurse Practitioner Family; Visit Provider Nurse Practitioner Family
DX: K31.84 Gastroparesis (principal); K30 Functional dyspepsia; R10.9 Unspecified abdominal pain
CPT/HCPCS: 78264; A9541

== ENCOUNTER → 2024-07-06 08:23 | Outpatient (BNVA) | payer BC, MEDICAID, SELFPAY | PROVIDERS: PCP Clinical Nurse Specialist Adult Health; Visit Provider Clinical Nurse Specialist Adult Health | DX: K21.9 Gastro-esophageal reflux disease without esophagitis (principal); E66.01 Morbid (severe) obesity due to excess calories | CPT/HCPCS: 80053; 80061; 85025 ==